=== PATIENT | male | born 1990 | race Caucasian/White ===

== ENCOUNTER 2017-05-07 13:16 | Inpatient (IN) | END 2017-05-10 18:00 | disposition home or self-care (01) | DRG 292 ==

== ENCOUNTER 2018-12-04 12:54 | Emergency (ER) | payer OTHER ==
[~2018-12-04] VITALS: Ht 175.3 cm; Wt 117.4 kg
[~2018-12-04 12:54] MED LIST: ALBU18HF INHALATION; ASPI-817 PO; CARV12.579 PO; FURO40TA4 PO; LEVO750T25 PO; LISI-471 PO; PRED20TA PO; UDKCL40 PO
[2018-12-04 12:56] VITALS: Ht 175.3 cm; Wt 117.4 kg
[2018-12-04] MEDS ORDERED: ALBUTEROL 0.5% (NEB) 2.5 MG/0.5 ML AMP INH STA (13:48)
[2018-12-04] MEDS ORDERED: predniSONE 20 MG TAB PO STA (13:48)
[2018-12-04] MEDS ORDERED: IPRATROPIUM (NEB) 0.5 MG/2.5 ML AMP INH STA (13:48)
[2018-12-04 15:56] VITALS: BP 130/78; PULSE 99; RESP 28
== END 2018-12-04 15:57 | disposition home or self-care (01) ==
LOC: FTE 12:54
DX: J18.9 Pneumonia, unspecified organism (principal); I11.0 Hypertensive heart disease with heart failure; I50.9 Heart failure, unspecified; D72.829 Elevated white blood cell count, unspecified; J40 Bronchitis, not specified as acute or chronic; Z79.82 Long term (current) use of aspirin
CPT/HCPCS: 36415; 71046; 80053; 83880; 84484; 85025; 94644; J7512; Z7502; Z7610; 99285